=== PATIENT | male | born 1990 | race Caucasian/White ===

== ENCOUNTER 2024-08-31 14:12 | Emergency (ER) | payer MEDICAID ==
[~2024-08-31] VITALS: Ht 193 cm; Wt 100.0 kg
[~2024-08-31 14:12] MED LIST: NOCURR
[2024-08-31 14:25] VITALS: TEMP 97.9
[2024-08-31] MEDS: SULFAMETHOX/TRIMETH DS 800-160 MG/TABLET PO ONE (16:49)
[2024-08-31] MEDS: CLINDAMYCIN HCL 150 MG CAPSULE PO ONE (16:49)
[2024-08-31] MEDS ORDERED: SULF-261 PO (17:11)
[2024-08-31] MEDS ORDERED: ACET-3385 PO (17:11)
[2024-08-31] MEDS ORDERED: CLIN-26 PO (17:11)
[2024-08-31 17:13] VITALS: BP 114/79; PULSE 86; RESP 18; O2SAT 100
== END 2024-08-31 17:26 | disposition home or self-care (01) ==
LOC: EMS 14:14
DX: L03.113 Cellulitis of right upper limb (principal); F12.90 Cannabis use, unspecified, uncomplicated; Z88.0 Allergy status to penicillin
CPT/HCPCS: 99283